=== PATIENT | female | born 1955 | race Caucasian/White ===

== ENCOUNTER → 2017-11-01 | Outpatient (CLI) | payer BC, SELFPAY | END | disposition home or self-care (01) | LOC: RAH 11:13 | PROVIDERS: ATTEND Internal Medicine | DX: M77.31 Calcaneal spur, right foot (principal); M72.2 Plantar fascial fibromatosis | CPT/HCPCS: 73630 ==

== ENCOUNTER → 2019-11-01 | Outpatient (CLI) | payer OTHER | END | disposition home or self-care (01) | LOC: SHCH 13:24 | PROVIDERS: ATTEND Internal Medicine Cardiovascular Disease | DX: I51.7 Cardiomegaly (principal); R07.9 Chest pain, unspecified | CPT/HCPCS: 93306; 93356 ==

== ENCOUNTER → 2019-12-06 | Outpatient (CLI) | payer OTHER | END | disposition home or self-care (01) | LOC: OIH 13:32 | PROVIDERS: ATTEND Nurse Practitioner Adult Health | DX: Z13.6 Encounter for screening for cardiovascular disorders (principal) | CPT/HCPCS: 75571 ==

== ENCOUNTER → 2021-09-12 | Outpatient (CLI) | payer MEDICARE | END | disposition home or self-care (01) | LOC: SHCH 10:35 | PROVIDERS: ATTEND Internal Medicine Cardiovascular Disease | DX: I10 Essential (primary) hypertension (principal); I35.0 Nonrheumatic aortic (valve) stenosis | CPT/HCPCS: 93306 ==

== ENCOUNTER → 2023-03-30 | Outpatient (CLI) | payer MEDICARE | END | disposition home or self-care (01) | LOC: SHCH 08:10 | PROVIDERS: ATTEND Internal Medicine Cardiovascular Disease | DX: I65.23 Occlusion and stenosis of bilateral carotid arteries (principal); R09.89 Other specified symptoms and signs involving the circulatory and respiratory systems | CPT/HCPCS: 93880 ==

== ENCOUNTER → 2024-02-18 | Outpatient (CLI) | payer MEDICARE ==
--- NOTE | 2024-02-21 09:53 | HMCSR ---
APPROVED REPORT EXAM: Two-dimensional and M-mode echocardiogram with Doppler and color Doppler. INDICATION ICD: R01.1 Cardiac murmur, unspecified 2D Dimensions RVDd3.3 cmLVEF(%)58.6 (>50%)LVED Vol(simp.)100.0 mL IVSd0.6 (0.7-1.1cm)FS(%)31 %LVES Vol(simp.)36.0 mL LVDd5.4 (3.8-5.6cm)Ao Root(2D)2.4 (2.0-3.7cm)LVEF(%, simp.)64 % PWd0.7 (0.7-1.1cm)LVOT diam1.8 (1.8-2.4cm)LA ESV INDEX (BP)36.96 mL/m2 LVDs3.7 (2.5-4.0cm)IVC diam1.7 cm Deformation Strain Apical 4-19.5 % Apical 2-18.6 % Apical 3-21.7 % Global Strain-19.9 % Aortic Valve AoV Vmax2.4 m/Wei Peak GR23.0 mmHgLVOT Vmax1.2 m/s AoV VTI0.6 mAo Mean GR12.5 mmHgLVOT VTI0.32 m GENE (VMAX)1.4 cm2Al P1/2T507 msAVA (VTI) 1.4 cm2 Mitral Valve MV E Vmax97.7 cm/sDECEL Xclc769 ms MV A Vmax80.6 cm/sP 1/2 T53 ms E/A ratio1.2MVA (PHT)4.1 cm2 MR Max PG107 mmHg TDI E/E' Egkolo01.2E/E' Lateral8.3 Pulmonary Valve PV Vmax1.1 m/sPV VTI0.29 mPV Mean GR3 mmHg PV Peak GR4.4 mmHg Tricuspid Valve TR Vmax2.9 m/sRAP (EST) 3 zjCjVRKM26.8 mmHg TR Peak GR33.8 mmHg Left Ventricle The left ventricle structure and function is normal. There is normal LV segmental wall motion. There is normal left ventricular wall thickness. LVEF is 60-65%. GLS rate is -19.9%. Grade 2 diastolic dysf unction. Right Ventricle The right ventricle is normal size. The right ventricular systolic function is normal. Atria The left atrium is mildly dilated. The right atrium size is normal. Aortic Valve Aortic valve is trileaflet. Aortic valve is mildly calcified. Mild aortic regurgitation. Calculated a ortic valve area is 1.4 cm2 with maximum pressure gradient of 23 mmHg and mean pressure gradient of 1 2.5 mmHg. Mitral Valve Mitral valve leaflets appear normal. Mitral annular calcification is borderline. Mitral regurgitation is mild. There is no mitral valve stenosis. Tricuspid Valve The tricuspid valve leaflets appear normal. There is mild tricuspid regurgitation. Right ventricular systolic pressure is estimated at 30-40 mmHg. Pulmonic Valve The pulmonic valve leaflets are thin and pliable; valve motion is normal. There is trace pulmonic lianne vular regurgitation. Great Vessels The aortic root is normal in size. The IVC is normal in size and collapses >50% with inspiration. Pericardium The pericardium appears normal. Conclusion LVEF is 60-65%. GLS rate is -19.9%. Grade 2 diastolic dysfunction. There is normal LV segmental wall motion. Calculated aortic valve area is 1.4 cm2 with maximum pressure gradient of 23 mmHg and mean pressure g radient of 12.5 mmHg. Mild aortic regurgitation. Mitral regurgitation is mild. There is mild tricuspid regurgitation. Right ventricular systolic pressure is estimated at 30-40 mmHg. The pericardium appears normal.
== END | disposition home or self-care (01) ==
LOC: SHCH 13:21
PROVIDERS: ATTEND Internal Medicine Cardiovascular Disease
DX: I08.3 Combined rheumatic disorders of mitral, aortic and tricuspid valves (principal); R01.1 Cardiac murmur, unspecified
CPT/HCPCS: 93306; 93356

== ENCOUNTER → 2024-12-04 | Outpatient (CLI) | payer OTHER ==
--- NOTE | 2024-12-04 17:44 | HMCIMG ---
EXAM: CT Chest Without Intravenous Contrast. CLINICAL HISTORY: 69-year-old female with a solitary pulmonary nodule. TECHNIQUE: Axial computed tomography images of the chest without intravenous contrast. Dose reduction technique was used including one or more of the following: automated exposure control, adjustment of mA and kV according to patient size, and/or iterative reconstruction. CONTRAST: None. COMPARISON: 06/30/2024. FINDINGS: LUNGS: A right upper lobe pulmonary nodule measuring 4.8 mm is stable when compared to prior CT. Other tiny micronodules less than 3 mm in diameter are present in the right lower lobe. In the left lower lobe, a rounded pulmonary nodule is seen measuring 7.5 mm in diameter, similar to prior CT. PLEURAL SPACES: No pleural effusion. No pneumothorax. HEART AND MEDIASTINUM: No cardiomegaly. No significant pericardial effusion. LYMPH NODES: No lymphadenopathy. CHEST WALL AND UPPER ABDOMEN: The upper abdominal solid organs are unremarkable. The chest wall is unremarkable. BONES: ACDF fixation plate screws in the lower cervical spine. No acute osseous abnormality otherwise. IMPRESSION: 1. Stable right upper lobe pulmonary nodule measuring 4.8 mm. 2. Stable left lower lobe rounded pulmonary nodule measuring 7.5 mm. 3. Other tiny micronodules less than 3 mm in diameter in the right lower lobe which may be inflammatory or infectious by nature. /Draper
== END | disposition home or self-care (01) ==
LOC: RAH 12:52
PROVIDERS: ATTEND Internal Medicine Critical Care Medicine
DX: R91.8 Other nonspecific abnormal finding of lung field (principal)
CPT/HCPCS: 71250